=== PATIENT | male | born 1965 | race Caucasian/White ===

== ENCOUNTER 2020-07-05 13:50 | Observation (INO) ==
[2020-07-05] MEDS ORDERED: PANTOPRAZOLE 40 MG VIAL IV STA (14:08)
[2020-07-05] MEDS ORDERED: ALUM/MAG/SIMETH/LIDO VISC 1:1 30 ML BOTTLE PO STA (14:08)
[2020-07-05] MEDS ORDERED: ONDANSETRON 4 MG/2 ML VIAL IV STA (14:09)
[2020-07-05 14:20] LABS: Basophils # 0.1 10*3/uL (0.0-0.2); Basophils % 0.5 % (0.0-0.8); Eosinophils # 0.4 10*3/uL (0.0-0.87); Eosinophils % 2.4 % (0.00-10.9); Hematocrit 42.9 VOL% (42.0-52.0); Hemoglobin 14.7 GM/DL (14.0-18.0); Immature Granulocytes % 0.5 %; Immature Granulocytes Absolute 0.08 #; Lymphocytes # 2.8 10*3/uL (1.4-4.0); Lymphocytes % 18.4 % (21.2-54.2); Mean Corpuscular HGB Conc 34.3 GM/DL (32-36); Mean Corpuscular Volume 87.9 FL (87-102); Mean Platelet Volume 8.8 FL (9.6-12.0); Monocytes % 9.2 % (1.7-12.7); Platelet Count 311 T/CUMM (130-400); Red Blood Count 4.88 MC/CUMM (3.8-5.5); Red Cell Distribution Width 12.1 % (9.3-17.3); White Blood Count 15.3 T/CUMM (4-12)
[2020-07-05 14:59] LABS: Albumin 4.1 G/DL (3.4-5.0); Osmolality,Calculated 269.2 MOS/KG (273-304); Potassium 3.4 MMOL/L (3.5-5.1)
[2020-07-05 15:04] LABS: Bilirubin,Urine Negative (Negative); Blood, Urine Negative (Negative); Glucose,Urine (UA) Negative (Negative); Ketones,Urine Negative (Negative); Mucus,Urine Occasional /LPF (Occasional); Nitrite,Urine Negative (Negative); Protein,Urine Negative; RBC,Urine 1 /HPF (0-4); Urine Appearance CLEAR (Clear); Urine Color Yellow (Yellow); Urine Specific Gravity 1.014 (1.001-1.035); Urine Urobilinogen < 2.0 EU/DL (0.2-1.0); WBC,Urine <1 /HPF (0-6)
[2020-07-05] MEDS ORDERED: ASPIRIN 325 MG TABLET PO STA (16:15)
[2020-07-05] MEDS ORDERED: ACETAMINOPHEN 325 MG TABLET PO PRN (17:15)
[2020-07-05] MEDS ORDERED: ONDANSETRON 4 MG/2 ML VIAL IV PRN (17:15)
[2020-07-05] MEDS: SODIUM CHLORIDE 0.9% 1,000 ML IV SCH (18:02)
[2020-07-05] MEDS: DOCUSATE SODIUM 100 MG CAPSULE PO SCH (20:45)
[2020-07-05] MEDS ORDERED: ENOXAPARIN 40 MG/0.4 ML SYRINGE SUBCUT SCH (21:00)
[2020-07-06] MEDS: SODIUM CHLORIDE 0.9% 1,000 ML IV SCH ×3 (01:58→18:26)
[2020-07-06] MEDS ORDERED: POTASSIUM CHLORIDE 20 MEQ TABLET PO ONE (07:33)
[2020-07-06] MEDS: ASPIRIN EC 81 MG TABLET PO SCH (08:08)
[2020-07-06] MEDS: PANTOPRAZOLE 40 MG TABLET PO SCH (08:08)
[2020-07-06] MEDS: DOCUSATE SODIUM 100 MG CAPSULE PO SCH ×2 (08:08→20:40)
[2020-07-06] MEDS ORDERED: MORPHINE 4 MG/1 ML VIAL IV PRN (08:26)
[2020-07-06 09:00] LABS: Risk Ratio 3.83; VLDL CHOLESTEROL 18.2 MG/DL
[2020-07-06 09:01] LABS: Troponin I < 0.015 NG/ML (0.00-0.045)
[2020-07-06] MEDS: lisinopriL 10 MG TABLET PO SCH (10:16)
[2020-07-06] MEDS ORDERED: CHLORTHALIDONE 25 MG TABLET PO SCH (21:00)
[2020-07-07] MEDS: SODIUM CHLORIDE 0.9% 1,000 ML IV SCH ×2 (02:01→10:45)
[2020-07-07 05:24] LABS: Basophils # 0.1 10*3/uL (0.0-0.2); Eosinophils # 0.5 10*3/uL (0.0-0.87); Hematocrit 39.1 VOL% (42.0-52.0); Hemoglobin 13.2 GM/DL (14.0-18.0); Immature Granulocytes % 1.1 %; Lymphocytes # 2.3 10*3/uL (1.4-4.0); Lymphocytes % 24.1 % (21.2-54.2); Mean Corpuscular HGB Conc 33.8 GM/DL (32-36); Mean Corpuscular Volume 90.1 FL (87-102); Monocytes % 9.5 % (1.7-12.7); Neutrophils % 59.3 % (38.7-73.9); Platelet Count 265 T/CUMM (130-400); Red Blood Count 4.34 MC/CUMM (3.8-5.5); Red Cell Distribution Width 12.3 % (9.3-17.3); White Blood Count 9.4 T/CUMM (4-12)
[2020-07-07 05:57] LABS: Bilirubin,Total 0.6 MG/DL (0.2-1.0); Calcium 8.3 MG/DL (8.5-10.1); Osmolality,Calculated 275.7 MOS/KG (273-304); Potassium 3.8 MMOL/L (3.5-5.1); Total Protein 6.3 G/DL (6.4-8.2)
[2020-07-07 06:29] LABS: Sedimentation Rate-Westergren 18 MM/HR (0-20)
[2020-07-07] MEDS ORDERED: LACTATED RINGERS 1,000 ML IV SCH (08:00)
[2020-07-07] MEDS: DOCUSATE SODIUM 100 MG CAPSULE PO SCH (08:30)
[2020-07-07] MEDS: ASPIRIN EC 81 MG TABLET PO SCH (08:30)
[2020-07-07] MEDS: PANTOPRAZOLE 40 MG TABLET PO SCH (08:30)
[2020-07-07] MEDS: lisinopriL 10 MG TABLET PO SCH (08:30)
[2020-07-07] MEDS ORDERED: LIDOCAINE 2% 5 ML VIAL ONE (13:20)
[2020-07-07] MEDS ORDERED: propofoL 200 MG/20 ML VIAL IV ONE ×2 (13:20→13:27)
[2020-07-07 16:19] VITALS: BP 174/81
[2020-07-07] MEDS ORDERED: PANTOPRAZOLE 40 MG TABLET PO SCH (21:00)
== END 2020-07-07 16:14 | disposition home or self-care (01) ==
LOC: N.ED 13:50 → N.EDINP 13:50 → N.TELES 17:44
PROVIDERS: ADMIT Family Medicine; ATTEND Family Medicine